=== PATIENT | female | born 1985 | race Two or more races ===

== ENCOUNTER → 2024-05-23 | Outpatient (BNVA) | payer OTHER, SELFPAY | END | disposition home or self-care (01) | PROVIDERS: PCP Nurse Practitioner Family; Referring Provider Nurse Practitioner Family; Visit Provider Nurse Practitioner Family | DX: E03.9 Hypothyroidism, unspecified (principal) | CPT/HCPCS: 99212; G0463 ==

== ENCOUNTER → 2024-06-02 | Outpatient (BNVA) | payer OTHER, SELFPAY | END | disposition home or self-care (01) | PROVIDERS: PCP Nurse Practitioner Family; Referring Provider Nurse Practitioner Family; Visit Provider Nurse Practitioner Family | DX: Z12.11 Encounter for screening for malignant neoplasm of colon (principal); E03.9 Hypothyroidism, unspecified | CPT/HCPCS: 99212; G0463 ==

== ENCOUNTER → 2024-08-12 | Outpatient (BNVA) | payer OTHER, SELFPAY | END | disposition home or self-care (01) | PROVIDERS: PCP Nurse Practitioner Family; Referring Provider Nurse Practitioner Family; Visit Provider Nurse Practitioner Family | DX: Z00.01 Encounter for general adult medical examination with abnormal findings (principal); Z13.828 Encounter for screening for other musculoskeletal disorder; E55.9 Vitamin D deficiency, unspecified; E78.5 Hyperlipidemia, unspecified; E03.9 Hypothyroidism, unspecified; Z13.1 Encounter for screening for diabetes mellitus; E66.3 Overweight; Z23 Encounter for immunization; Z72.3 Lack of physical exercise; Z71.85 Encounter for immunization safety counseling; H61.22 Impacted cerumen, left ear | CPT/HCPCS: 69209; 90471; 90715; 99173; 99215 ==

== ENCOUNTER → 2024-08-29 | Outpatient (BNVA) | payer OTHER, SELFPAY | END | disposition home or self-care (01) | PROVIDERS: PCP Nurse Practitioner Family; Referring Provider Nurse Practitioner Family; Visit Provider Nurse Practitioner Family | DX: Z71.2 Person consulting for explanation of examination or test findings (principal); N39.0 Urinary tract infection, site not specified; E78.5 Hyperlipidemia, unspecified; E55.9 Vitamin D deficiency, unspecified; E03.9 Hypothyroidism, unspecified | CPT/HCPCS: 99212; G0463 ==

== ENCOUNTER 2024-10-03 08:16 | Outpatient (AMB) | payer OTHER, SELFPAY ==
[2024-10-03 08:32] VITALS: BP 123/85; PULSE 69; RESP 17; TEMP 36.7; O2SAT 97; BMI 31.1
--- NOTE | 2024-10-03 08:32 | GYNCLNT_ITS ---
Vital Signs 10/03/24 08:32 Height 1.68 m Height Method Measured Weight 87.713 kg Weight Measurement Method Standing Scale BMI 31.1 BP 123/85 H Blood Pressure Source Automatic Cuff Blood Pressure Location Right Upper Arm Position Sitting Respiration 17 Pulse 69 Pulse Source Monitor Temp 98.0 F Temp Source Temporal Artery Scan Pulse Oximetry (%) 97 Oxygen Delivery Method Room Air Allergies/Home Meds Allergies & Medications Allergies No Known Drug Allergies Allergy (Verified 10/03/24 08:33) Medication Reconciliation ibuprofen 600 mg tablet 600 mg PO Q8H PRN fever or pain #30 tabs 06/14/23 [Rx Confirmed 10/03/24] folic acid 400 mcg tablet 0.4 mg PO QDAY #90 tabs 08/12/24 [Rx Confirmed 10/03/24] levothyroxine 150 mcg tablet 150 mcg PO QDAY #30 tabs 08/12/24 [Rx Confirmed 10/03/24] ergocalciferol (vitamin D2) 1,250 mcg (50,000 unit) capsule 50,000 unit PO QWEEK 12 weeks #12 caps 09/01/24 [Rx Confirmed 10/03/24] Intake Visit Data Collection New Patient or Established: New Patient (never been to [facility]) Reason for Visit:: IUD REMOVAL\BTL CONSULT Consent obtained for Telemed Visit: No Seen by Clinical Staff ONLY (RN/MA): No Medical Laboratory Manager Required: Yes Medical Laboratory Manager's name/title: CAMILO TRAYLOR Do You Feel Safe at Home: Yes Authorities Contacted: N/A PCP or OBGYN visit in last 3 months: No Hx Now: No Are you currently on any form of Control: Yes Last menstrual period: 10/01/24 Pain Present Currently: No Pain Scale Used: Epps-S[place]/Numerical Pain scale:: 0 Smoking Status Smoking Status: Never smoker 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 1. Little interest or pleasure in doing things: not at all PHQ-9 8. Moving or speaking so slowly that other people could have noticed? - Or the opposite - being so fidgety or restless that you have been moving around a lot more than usual: not at all Source: Developed by Drs. Nicolas Nix, Yani Mckeon, Luigi Nogueira and colleagues, with an educational maryuri from [employer]. Social History Living Situation History Lives With: Family Housing: House Tobacco History Smoking Status: Never smoker Second Hand Smoke Exposure: No Alcohol History Alcohol Intake: Current Alcohol Intake Frequency: holidays/special occasions only Substance Use History Substance Use: NONE Domestic Abuse History Do You Feel Safe at Home: Yes History of Present Illness HPI Narrative Jesi Mendoza is a 39-year-old female, 3 para 3, presenting for IUD removal and reinsertion, as well as consultation for sterilization. The patient expresses a desire to not have any more children and is considering surgical options for permanent contraception. She has a history of three previous sections, which may potentially com plicate the sterilization procedure. She is currently using an IUD for contraception and is seeking its removal. The patient is interested in discussing both tubal ligation and hysterectomy as potential sterilization methods. After explanation, she appears to be leaning towards a laparoscopic tubal ligation procedure. The patient does not report any specific symptoms or complaints related to her current IUD or reproductive health. She demonstrates understanding of the proposed laparoscopic procedure for tubal ligation, including the placement of a camera and two small instruments to cut the fallopian tubes. Jesi also agrees with the recommendation to remove her current IUD during the sterilization surgery while under anesthesia, rather than having it removed in the office setting. Obstetric History: - GTPAL: - history: Three previous sections Surgical History: - Three sections Social History: - Children: Has 3 children Exam General General Appearance: alert, in no apparent distress and healthy appearing Head Head exam: atraumatic Neck Neck exam: Present normal inspection and trachea midline Chest Chest inspection: Present normal inspection and symmetric chest wall rise External exam: Present normal external exam; Absent tenderness Neuro Neurological exam: Present oriented X3 Psych Psychiatric exam: Present normal affect and normal mood Office Procedures OB Clinic LOC & Office Proc's Nursing/Assessment Patient Status: Initial/New Patient OB Clinic Nursing Assessment: Medication Reconciliation, Update PMH in EMR and Vital Signs OB Clinic Coordination of Care: Complex Care and Chronic Disease 1-5, Consent ,records obtained, informed consent, Education Simp Pt/Fam and 4+ Authorizations needed New Patient Charge New Patient Point Assignment: 1099 New Patient Point Charge: CLINICAL RECRUITER Level 3 (5387-5227) Results Urine HCG Urine HCG Negative Last Edit by Adelaide Judge MA on 10/03/24 08:53 Assessment & Plan Diagnosis / Problem List (1) Encounter for sterilization: Status: Acute Plan Desire for permanent contraception Plan: - Provide consent form for laparoscopic tubal ligation - Initiate mandatory 30-day waiting period - Schedule surgery after waiting period - Remove IUD during surgery under anesthesia - Perform laparoscopic tubal ligation - Encourage patient to research and prepare questions for next visit Intrauterine Device (IUD) Plan: - Remove IUD during scheduled laparoscopic tubal ligation procedure
== END 2024-10-03 09:02 | disposition home or self-care (01) ==
LOC: HODSOBC 08:16
PROVIDERS: Supervising Provider Obstetrics & Gynecology; Visit Provider Obstetrics & Gynecology
DX: Z30.2 Encounter for sterilization (principal); Z97.5 Presence of (intrauterine) contraceptive device
CPT/HCPCS: 99203; G0463

== ENCOUNTER → 2024-11-18 | Outpatient (BNVA) | payer OTHER, SELFPAY | END | disposition home or self-care (01) | PROVIDERS: PCP Nurse Practitioner Family; Referring Provider Nurse Practitioner Family; Visit Provider Nurse Practitioner Family | DX: E03.9 Hypothyroidism, unspecified (principal); E55.9 Vitamin D deficiency, unspecified; E78.5 Hyperlipidemia, unspecified; E66.9 Obesity, unspecified; Z68.32 Body mass index [BMI] 32.0-32.9, adult | CPT/HCPCS: 99213 ==

== ENCOUNTER 2024-11-19 10:25 | Outpatient (AMB) | payer OTHER, SELFPAY ==
--- NOTE | 2024-11-19 11:02 | GYNCLNT_ITS ---
Vital Signs 11/19/24 11:06 Height 1.68 m Height Method Stated Weight 88.904 kg Weight Measurement Method Standing Scale BMI 31.5 BP 110/64 Blood Pressure Source Automatic Cuff Blood Pressure Location Left Upper Arm Position Sitting Respiration 14 Pulse 68 Pulse Source Monitor Temp 98.1 F Temp Source Oral Pulse Oximetry (%) 98 Oxygen Delivery Method Room Air Allergies/Home Meds Allergies & Medications Allergies No Known Drug Allergies Allergy (Verified 11/20/24 06:39) Intake Visit Data Collection New Patient or Established: Established Patient (seen at [facility] within 3 years) Reason for Visit:: PRE OP CONSULT Seen by Clinical Staff ONLY (RN/MA): No Transport Analyst Required: No Do You Feel Safe at Home: Yes Authorities Contacted: N/A PCP or OBGYN visit in last 3 months: Yes Hx Now: No Are you currently on any form of Control: Yes Pain Present Currently: No Pain Scale Used: Epps-Sev[place]/Numerical Pain scale:: 0 Smoking Status Smoking Status: Never smoker 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 Menstrual regularity: regular Flow: normal Monthly: Yes How many days does period last: 5 Age at menarche: 12 FIELD SERVICES ANALYST: Past Medical History Past Medical History: No Hx Neurological Disorders, Yes Hx Hypothyroidism, No Hx Cardiac Disorders, No Hx Cancer, No Hx Blood Disorders, No Hx Gastrointestinal Disorders, No Hx Renal Disease, No Hx Diabetes Mellitus Type 1 and No Hx Diabetes Mellitus Type 2 Questionnaires Covid-19 Vaccine Questionnaire Has patient been vacinated for Covid-19 Have you been vacinated for Covid-19: Yes PHQ-9 PHQ-2 Over the last 2 weeks, how often have you been bothered by any of the following problems? 1. Little interest or pleasure in doing things: not at all 2. Feeling down, depressed, or hopeless: not at all Total score: 0 PHQ-9 3. Trouble falling or staying asleep, or sleeping too much: Not at all 4. Feeling tired or having little energy: Not at all 5. Poor appetite or overeating: Not at all 6. Feeling bad about yourself - or that you are a failure or have let yourself or your family down: Not at all 7. Trouble concentrating on things, such as reading the newspaper or watching television: Not at all 8. Moving or speaking so slowly that other people could have noticed? - Or the opposite - being so fidgety or restless that you have been moving around a lot more than usual: not at all 9. Thoughts that you would be better off or of hurting yourself in some way: Not at all Total score: 0 Source: Developed by Drs. Nicolas Nix, Yani Mckeon, Luigi Nogueira and colleagues, with an educational maryuri from [employer]. Depression screen completed yes Social History Living Situation History Lives With: Family Housing: House Tobacco History Smoking Status: Never smoker Second Hand Smoke Exposure: No Alcohol History Alcohol Intake: Never Alcohol Intake Frequency: holidays/special occasions only Substance Use History Substance Use: NONE Domestic Abuse History Do You Feel Safe at Home: Yes History of Present Illness HPI Narrative Jesi Mendoza presents for a pre-operative visit ahead of her scheduled tubal li gation and iodine removal procedure tomorrow. The patient has been scheduled for a laparoscopic tubal ligation with concurrent iodine removal. She has completed her pre-operative admission process. Jesi has been informed that the procedure will be performed through small laparoscopic incisions. She understands that she will be discharged approximately 2 hours post-operation and can expect to feel sleepy for the remainder of the day due to anesthesia effects. The patient has been advised that she should start feeling better by the following morning. Jesi inquired about returning to normal ac tivities, and was informed that she should be able to do so by Sunday. ROS: Negative except as stated above, limited to FIELD SERVICES ANALYST and pertinent complaints. Exam General General Appearance: alert, in no apparent distress and healthy appearing Head Head exam: atraumatic Neck Neck exam: Present normal inspection and trachea midline Chest Chest inspection: Present normal inspection and symmetric chest wall rise External exam: Present normal external exam; Absent tenderness Neuro Neurological exam: Present oriented X3 Psych Psychiatric exam: Present normal affect and normal mood Office Procedures OB Clinic LOC & Office Proc's Nursing/Assessment Patient Status: Established Patient OB Clinic Nursing Assessment: Medication Reconciliation, Update PMH in EMR and Vital Signs OB Clinic Coordination of Care: Complex Care and Chronic Disease 1-5, Consent,records obtained, informed consent, Education Simp Pt/Fam, Lab and Imaging orders, Results/Orders obtained and Staff clarify orders Established Patient Charge Established Patient Point Assignment: 105 Established Patient Point Charge: EP Level 3 (80-115) Assessment & Plan Diagnosis / Problem List (1) Encounter for sterilization: Status: Acute (2) IUD contraception: Status: Acute Plan Scheduled Tubal Ligation: - Patient scheduled for laparoscopic tubal ligation procedure tomorrow. - IUD removal will be conducted during the same procedure. - Patient has completed pre-operative admission process. Plan: - Perform laparoscopic tubal ligation with iodine removal tomorrow. - Discharge patient 2 hours post-operation. - Anticipate patient sleepiness for the remainder of the day due to anesthesia. - Expect improvement in patient's condition by the following morning. - Patient may resume normal activities by Sunday.
[2024-11-19 11:06] VITALS: BP 110/64; PULSE 68; RESP 14; TEMP 36.7; O2SAT 98; BMI 31.5
== END 2024-11-19 11:16 | disposition home or self-care (01) ==
LOC: HODSOBC 10:25
PROVIDERS: Supervising Provider Obstetrics & Gynecology; Visit Provider Obstetrics & Gynecology
DX: Z30.2 Encounter for sterilization (principal); Z97.5 Presence of (intrauterine) contraceptive device
CPT/HCPCS: 99213; G0463

== ENCOUNTER 2024-11-20 05:35 | Day surgery (SDC) | payer OTHER, SELFPAY ==
[2024-11-14 07:07] VITALS: BMI 37.0
[2024-11-14 07:44] LABS: Basophils # (Auto) 0.1 Thou/mm3 (0.0-0.2); Basophils % (Auto) 1 % (0-2.5); Eosinophils # (Auto) 0.2 Thou/mm3 (0.0-0.5); Eosinophils % (Auto) 2 % (0-10); Hematocrit 39.2 % (36.0-46.0); Hemoglobin 13.0 g/dL (12.0-16.0); Immature Granulocytes Auto 0.06 Thou/mm3 (0.00-0.00); Lymphocytes # (Auto) 2.7 Thou/mm3 (1.0-4.8); Lymphocytes % (Auto) 28 % (10-50); Mean Corpuscular HGB Conc 33.2 g/dl (31.0-37.0); Mean Corpuscular Hemoglobin 31.0 pg (25.0-35.0); Mean Corpuscular Volume 94 fL (80-100); Monocytes # (Auto) 0.8 Thou/mm3 (0.0-0.8); Monocytes % (Auto) 8 % (0-12); Neutrophils # (Auto) 5.7 Thou/mm3 (1.8-7.7); Neutrophils % (Auto) 60 % (37-80); Nucleated Red Blood Cell # 0.00 Thou/mm3 (0.00-0.00); Nucleated Red Blood Cell % 0 /100 WBC (0); Platelet Count 361 Thou/mm3 (140-440); RDW Standard Deviation 52.4 fL (36.4-46.3); Red Blood Count 4.19 Miln/mm3 (4.00-5.20); White Blood Count 9.4 Thou/mm3 (3.6-11.0)
[2024-11-14 07:58] LABS: Alanine Aminotransferase 26 U/L (10-49); Albumin, Serum 4.3 gm/dL (3.5-5.0); Albumin/Globulin Ratio 1.8 (1.2-2.2); Alkaline Phosphatase 107 U/L (46-116); Anion Gap 8 (7-16); Aspartate Amino Transferase 23 U/L (0-34); BUN/Creatinine Ratio 16 Ratio (12-20); Bilirubin,Total 0.4 mg/dL (0.3-1.2); Blood Urea Nitrogen 13 mg/dL (9-23); Calcium 9.3 mg/dL (8.3-10.6); Calcium (Corrected) 9.3 mg/dL (8.5-10.1); Carbon Dioxide 26.7 mMol/L (20.0-31.0); Chloride 107 mMol/L (98-107); Creatinine (Component) 0.8 mg/dL (0.6-1.3); Estimated Creatinine Clearance 96.7 mL/min (>60); Globulin 2.4 gm/dL (2.3-3.5); Glucose 96 mg/dL (74-106); Osmolality,Calculated 283 (275-295); Potassium 4.3 mMol/L (3.4-5.1); Sodium 142 mMol/L (136-145); Total Protein 6.7 gm/dL (5.7-8.2); eGFR > 60 See Note
[2024-11-14 08:26] LABS: HCG,Qualitative Serum Negative
[2024-11-20] VITALS (7 sets, daily range): BP systolic 94–113; BP diastolic 62–77; PULSE 66–96; RESP 15–19; TEMP 36.3–36.4; O2SAT 96–99; BMI 32.9
[2024-11-20] MEDS: RINGERS LACTATED 1000 ML 1,000 ML 20 ML IV (06:39)
--- NOTE | 2024-11-20 08:32 | PD.GYNPROC ---
Operative Note - TECHNICAL SUPPORT PROFESSIONAL Procedure Date of procedure: 11/20/24 Procedure Performed: Laparoscopic salpingectomy bilateral Cervical dilatation and removal of retained intrauterine device Indication: 39-year-old desiring surgical sterilization Retained intrauterine device Anesthesia type: General Procedure description: Informed consent was obtained patient was taken to the operating room.? Identity was confirmed by double identifiers and she was placed on the operating table.? General anesthesia was administered and airway was secured.? Patient was now positioned in the dorsal lithotomy position in Camilo stirrups.? The abdomen and perineum were prepped in the usual sterile fashion and sterile drapes were applied.? The bladder was emptied using a straight catheter.? A sponge stick was placed in the vagina for uterine manipulation.? Attention was now turned to the patient's abdomen.? A 5 mm incision was made at the base of the umbilicus using a scalpel.? Laparoscopic entry was accomplished under direct visualization using [employer] laparoscopic trocar.? Once intra-abdominal placement was confirmed pneumoperitoneum was insufflated to 15 cm.? The camera was now introduced into the abdomen and a preliminary survey was performed.? The uterus and both adnexa were noted to be within normal limits.? Another overall survey of the upper abdomen was performed and no gross abnormalities were noted.? A pair of accessory ports were placed 2 cm superior and medial to the ASIS bilaterally.? The Enseal was used to perform a salpingectomy in the usual fashion. The dissection sites were now observed to note satisfactory hemostasis.? All instruments were now withdrawn.? Pneumoperitoneum was desufflated.? The laparoscopic ports were removed.? The skin was now closed using 4-0 Monocryl in a subcuticular fashion.? The patient's skin was now cleaned, sterile dressings were applied.? Attention was now turned to the vaginal aspect. A self-retaining speculum was placed and the cervix was brought into view. No IUD strings could be identified. The cervix was now grasped using an Allis clamp. It was placed under traction and serially dilated to about 4 mm. A polyp forcep was introduced and the IUD was grabbed and removed in its entirety. The IUD was inspected outside and noted to be intact. The Allis was removed from the cervix. The site was noted to be hemostatic. Patient was undraped, and general anesthesia was reversed and she was transferred to the recovery room in a stable and awake condition. The patient tolerated the entire procedure well.? All instrument, sponge and lap counts are correct x2.? No complications were encountered. Estimated blood loss (ml): 10 Complications: none Surgical staff Operation Date: 11/20/24 07:30 <No data on this case meets the specified criteria> Diagnosis Discharge Diagnosis (1) Encounter for sterilization: Status: Acute (2) Mechanical complication due to intrauterine contraceptive device: Status: Acute Problem List Completed Was Problem List Reviewed/Reconciled?: Yes
--- NOTE | 2024-11-20 08:38 | SUR.PHASEI ---
pt received from OR in recovery bay 5. pt obtunded, breathing unlabored on oxymask 6l, oral airway in place. v/s stable. pt dressing to abd dermabond x3 cdi. report received from Sukhjinder GALICIA and Claudia KUMAR.
--- NOTE | 2024-11-20 08:52 | SUR.PHASEI ---
pt able to tolerate oral fluids without difficulty swallowing or nausea/vomiting.
--- NOTE | 2024-11-20 09:39 | SUR.PHASEII ---
pt awake and alert, breathing unlabored on room air. v/s stable. pt dressing to abd x3 cdi. pt able to ambulate to wheelchair with steady gait. d/c instructions given with Tu in room using translator/interpreter [id number], all questions answered. pt d/c via wheelchair with all belongings.
== END 2024-11-20 09:39 | disposition home or self-care (01) ==
PROVIDERS: PCP Nurse Practitioner Family; Referring Provider Obstetrics & Gynecology; Visit Provider Obstetrics & Gynecology
PROC: (CPT 58720; principal; 2024-11-20 07:30)
PROC: (CPT 58301; 2024-11-20 07:30)
DX: Z30.2 Encounter for sterilization (principal); Z97.5 Presence of (intrauterine) contraceptive device
CPT/HCPCS: 58661; 58301; 36415; 80053; 84703; 85025; 86850; 86900; 86901; A4217; A4649; J0131; J1100; J2250; J2371; J2405; J2704; J3010; J3490; J7120; A9270; J1596

== ENCOUNTER 2024-12-03 10:45 | Outpatient (AMB) | payer OTHER, SELFPAY ==
[2024-12-03 11:16] VITALS: BP 118/77; PULSE 70; RESP 14; TEMP 36.7; O2SAT 95; BMI 34.9
--- NOTE | 2024-12-03 11:16 | GYNCLNT_ITS ---
Vital Signs 12/03/24 11:16 Height 1.57 m Height Method Stated Weight 86.75 kg Weight Measurement Method Standing Scale BMI 34.9 BP 118/77 Blood Pressure Source Automatic Cuff Blood Pressure Location Right Upper Arm Position Sitting Respiration 14 Pulse 70 Pulse Source Monitor Temp 98.1 F Temp Source Oral Pulse Oximetry (%) 95 Oxygen Delivery Method Room Air Allergies/Home Meds Allergies & Medications Allergies No Known Drug Allergies Allergy (Verified 12/05/24 08:32) Medication Reconciliation levothyroxine 150 mcg tablet 150 mcg PO QDAY #90 tabs 11/18/24 [Rx Confirmed 12/05/24] tirzepatide (weight loss) 2.5 mg/0.5 mL subcutaneous pen injector (Zepbound) 2.5 mg (0.5 mL) subcut QWEEK 4 weeks #2 mL 12/05/24 [Rx] Intake Visit Data Collection New Patient or Established: Established Patient (seen at [facility] within 3 years) Reason for Visit:: POST OP Seen by Clinical Staff ONLY (RN/MA): No Associate Data Scientist Required: Yes Associate Data Scientist's name/title: JOSE AN Do You Feel Safe at Home: Yes Authorities Contacted: N/A PCP or OBGYN visit in last 3 months: Yes Hx Now: No Are you currently on any form of Control: No Last menstrual period: 12/29/24 Pain Present Currently: No Pain Scale Used: Epps-Sevilla/Numerical Pain scale:: 0 Smoking Status Smoking Status: Never smoker 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 Menstrual regularity: regular Flow: normal Monthly: Yes Age at menarche: 13 Currently sexually active: No If not currently sexually active, have you ever been sexually active: Yes RESIDENTIAL DOOR UNIT INSTALLER: Past Medical History Past Medical History: No Hx Neurological Disorders, Yes Hx Hypothyroidism, No Hx Cardiac Disorders, No Hx Cancer, No Hx Blood Disorders, No Hx Gastrointestinal Disorders, No Hx Renal Disease, No Hx Diabetes Mellitus Type 1 and No Hx Diabetes Mellitus Type 2 Questionnaires Covid-19 Vaccine Questionnaire Has patient been vacinated for Covid-19 Have you been vacinated for Covid-19: Yes PHQ-9 PHQ-2 Over the last 2 weeks, how often have you been bothered by any of the following problems? 1. Little interest or pleasure in doing things: not at all 2. Feeling down, depressed, or hopeless: not at all Total score: 0 PHQ-9 3. Trouble falling or staying asleep, or sleeping too much: Not at all 4. Feeling tired or having little energy: Not at all 5. Poor appetite or overeating: Not at all 6. Feeling bad about yourself - or that you are a failure or have let yourself or your family down: Not at all 7. Trouble concentrating on things, such as reading the newspaper or watching television: Not at all 8. Moving or speaking so slowly that other people could have noticed? - Or the opposite - being so fidgety or restless that you have been moving around a lot more than usual: not at all 9. Thoughts that you would be better off or of hurting yourself in some way: Not at all Total score: 0 Source: Developed by Drs. Nicolas Nix, Yani Mckeon, Luigi Nogueira and colleagues, with an educational maryuri from [employer]. Depression screen completed yes Social History Living Situation History Lives With: Family Housing: House Tobacco History Smoking Status: Never smoker Second Hand Smoke Exposure: No Alcohol History Alcohol Intake: Never Alcohol Intake Frequency: holidays/special occasions only Substance Use History Substance Use: NONE Domestic Abuse History Do You Feel Safe at Home: Yes History of Present Illness HPI Narrative 39-year-old patient presenting for a one-week postoperative visit following laparoscopic salpingectomy and dilation and removal of IUD. She has a history of laparoscopic salpingectomy and dilation and removal of IUD, both performed 1 week ago. ROS: Negative except as stated above, limited to RESIDENTIAL DOOR UNIT INSTALLER and pertinent complaints. Exam General General Appearance: alert, in no apparent distress and healthy appearing Head Head exam: atraumatic Neck Neck exam: Present normal inspection and trachea midline Chest Chest inspection: Present normal inspection and symmetric chest wall rise External exam: Present normal external exam; Absent tenderness Neuro Neurological exam: Present oriented X3 Psych Psychiatric exam: Present normal affect and normal mood Office Procedures OBC Clinic LOC & Office Proc's Nursing/Assessment Patient Status: Established Patient OB Clinic Nursing Assessment: Medication Reconciliation, Update PMH in EMR and Vital Signs OB Clinic Coordination of Care: Complex Care and Chronic Disease 1-5, Consent,records obtained, informed consent, Education Simp Pt/Fam, Lab and Imaging orders, Results/Orders obtained and Staff clarify orders Established Patient Charge Established Patient Point Assignment: 105 Established Patient Point Charge: EP Level 3 (80-115) Assessment & Plan Diagnosis / Problem List (1) Encounter for surgical aftercare following surgery on the genitourinary system: Status: Acute Plan Postoperative follow-up laparoscopic sterilization: - Patient is one week status post laparoscopic sterilization procedure. - No specific postoperative complications, concerns, or examination findings documented. Plan: - Continue routine postoperative care. Postoperative follow-up IUD removal: - Patient is one week status post dilation and IUD removal procedure. - No specific postoperative complications, concerns, or examination findings documented. Plan: - Continue routine postoperative care.
== END 2024-12-03 11:37 | disposition home or self-care (01) ==
PROVIDERS: Supervising Provider Obstetrics & Gynecology; Visit Provider Obstetrics & Gynecology
DX: Z48.816 Encounter for surgical aftercare following surgery on the genitourinary system (principal); Z90.79 Acquired absence of other genital organ(s); E03.9 Hypothyroidism, unspecified; Z79.890 Hormone replacement therapy
CPT/HCPCS: 99213; G0463

== ENCOUNTER → 2024-12-05 | Outpatient (BNVA) | payer OTHER, SELFPAY | END | disposition home or self-care (01) | PROVIDERS: PCP Nurse Practitioner Family; Referring Provider Nurse Practitioner Family; Visit Provider Nurse Practitioner Family | DX: Z71.3 Dietary counseling and surveillance (principal); E66.9 Obesity, unspecified; Z68.35 Body mass index [BMI] 35.0-35.9, adult; Z23 Encounter for immunization | CPT/HCPCS: 90471; 90686; 99213 ==

== ENCOUNTER → 2024-12-16 | Outpatient (BNVA) | payer OTHER, SELFPAY | END | disposition home or self-care (01) | PROVIDERS: PCP Nurse Practitioner Family; Referring Provider Nurse Practitioner Family; Visit Provider Nurse Practitioner Family | DX: Z71.2 Person consulting for explanation of examination or test findings (principal); E66.9 Obesity, unspecified; E03.9 Hypothyroidism, unspecified; Z68.35 Body mass index [BMI] 35.0-35.9, adult; E55.9 Vitamin D deficiency, unspecified; N95.9 Unspecified menopausal and perimenopausal disorder; E78.5 Hyperlipidemia, unspecified | CPT/HCPCS: 99213 ==

== ENCOUNTER → 2025-01-05 | Outpatient (BNVA) | payer OTHER, SELFPAY | END | disposition home or self-care (01) | PROVIDERS: PCP Nurse Practitioner Family; Referring Provider Nurse Practitioner Family; Visit Provider Nurse Practitioner Family | DX: Z71.3 Dietary counseling and surveillance (principal); E66.812 Obesity, class 2; Z68.35 Body mass index [BMI] 35.0-35.9, adult | CPT/HCPCS: 99213 ==

== ENCOUNTER → 2025-02-02 | Outpatient (BNVA) | payer OTHER, SELFPAY | END | disposition home or self-care (01) | PROVIDERS: PCP Nurse Practitioner Family; Referring Provider Nurse Practitioner Family; Visit Provider Nurse Practitioner Family | DX: Z71.3 Dietary counseling and surveillance (principal); E66.812 Obesity, class 2; Z68.35 Body mass index [BMI] 35.0-35.9, adult | CPT/HCPCS: 99214 ==

== ENCOUNTER → 2025-03-03 | Outpatient (BNVA) | payer OTHER, SELFPAY | END | disposition home or self-care (01) | PROVIDERS: PCP Nurse Practitioner Family; Referring Provider Nurse Practitioner Family; Visit Provider Nurse Practitioner Family | DX: Z71.3 Dietary counseling and surveillance (principal); E66.9 Obesity, unspecified; Z68.32 Body mass index [BMI] 32.0-32.9, adult | CPT/HCPCS: 99213 ==